=== PATIENT | male | born 1955 | race Caucasian/White ===

== ENCOUNTER 2018-10-12 06:56 | Day surgery (SDC) | payer MEDICARE ==
[~2018-10-12] VITALS: Ht 182.9 cm; Wt 72.6 kg
[~2018-10-12 06:56] MED LIST: ACID CONTROLLER10 MG PO; AF-MIGRAIN1 PO; AFRIN 12 HOUR0.05 %; ALBUTEROL SUL0.083 % IN; BLOOD PRESSURE MED; COMBIVENT RESPIMAT IN; ERYTHROMYCIN BAS1 GM OD; FUROSEMIDE20 MG PO; GABAPENTIN300 M2 PO; HYDROCHLOROT25 MG PO; LOSARTAN POT50 MG PO; MOTRIN800 MG PO; MULTIVITAMI9 PO; NEURONTIN100 MG PO; NITROGLYCERIN0.3 MG SL; POTASSIMIN75 MG PO; SYNTHROID125 MCG PO; TRAMADOL HCL50 MG PO; TRAMADOL HYDROC50 MG PO; VITA D-1000 PO; VITAMIN7 PO; ZINC25 MG PO
[2018-10-12] MEDS ORDERED: IRON325 M1 PO (07:31)
[2018-10-12] MEDS ORDERED: PERCOCET 5/325M1 TAB PO (10:42)
[2018-10-12 11:21] VITALS: BP 120/81
== END 2018-10-12 11:32 | disposition home or self-care (01) ==
LOC: ORM 06:56
PROVIDERS: ATTEND Surgery
PROC: 0YUA4JZ Supplement Bilateral Inguinal Region with Synthetic Substitute, Percutaneous Endoscopic Approach (ICD-10-PCS; principal; 2018-10-12)
DX: K40.20 Bilateral inguinal hernia, without obstruction or gangrene, not specified as recurrent (principal); I10 Essential (primary) hypertension; J44.9 Chronic obstructive pulmonary disease, unspecified
CPT/HCPCS: C1781; C9290; J2710

== ENCOUNTER 2019-07-20 | Emergency (ER) | payer MEDICARE ==
[~2019-07-20] MED LIST changes: +IRON325 M1 PO; +PERCOCET 5/325M1 TAB PO
[2019-07-20] MEDS ORDERED: CYCLOBENZAPR5 MG PO (07:53)
[2019-07-20] MEDS ORDERED: VOLTAREN1%GEL TOP (07:53)
== END 2019-07-20 08:34 | disposition home or self-care (01) ==
DX: M25.512 Pain in left shoulder (principal); I10 Essential (primary) hypertension; J44.9 Chronic obstructive pulmonary disease, unspecified; F17.200 Nicotine dependence, unspecified, uncomplicated